=== PATIENT | female | born 1955 | race Caucasian/White ===

== ENCOUNTER 2022-05-14 08:03 | Day surgery (SDC) | payer OTHER ==
--- NOTE | 2022-05-12 11:31 | EKG ---
Test Date: 2022-05-12 Test Time: 11:01:56 Front End Manager: LUIS MEASUREMENT RESULTS: Intervals: Rate: 66 CT: 148 QRSD: 76 QT: 400 QTc: 419 [place]: P: 32 CT: 148 QRS: 5 T: 37 INTERPRETIVE STATEMENTS: Normal sinus rhythm Normal ECG No previous ECG available for comparison Electronically Signed On 05-12-22 11:31:08 CDT by Beck Camarena
[2022-05-12 11:43] LABS: Absolute Lymphocytes (CBC) 1.2 K/uL (0.7-4.9); Hematocrit 33.5 % (36.0-45.0); Lymphocytes % 15.4 % (15.3-44.8); MCV 94.3 fL (80-100); RBC Red Blood Cell Count 3.55 M/uL (3.86-4.86)
[2022-05-12 11:53] LABS: Protime INR 1.01
[2022-05-12 11:58] LABS: Potassium 4.6 mmol/L (3.5-5.1)
[2022-05-12 12:04] LABS: SARS-CoV-2 Antigen Rapid Res Negative (Negative)
--- NOTE | 2022-05-12 12:22 | RAD REPORT ---
EXAM DESCRIPTION: RAD - Chest Pa And Lat (2 Views) - 05/12/2022 11:55 am CLINICAL HISTORY: pre op for surgery Chest pain. COMPARISON: No comparisons FINDINGS: The lungs are clear. The heart is mildly prominent. No displaced fractures. Mild thoracic spondylosis.
[2022-05-12 12:30] LABS: Blood Morphology Comment NOT SEEN (NOT SEEN); Platelet Estimate ADEQ
[2022-05-14] MEDS ORDERED: CEFAZOLIN SODIUM 1 GM/VIAL ONE (08:32)
[2022-05-14] MEDS ORDERED: NA CHLORIDE 0.9% 1,000 ML ONE (08:32)
[2022-05-14] MEDS ORDERED: ACETAMINOPHEN 500 MG TAB PO ONE (08:45)
[2022-05-14] MEDS ORDERED: CELECOXIB 100 MG CAPSULE PO ONE (08:45)
[2022-05-14] MEDS ORDERED: CELECOXIB 100 MG CAPSULE ONE (08:54)
[2022-05-14] MEDS ORDERED: ACETAMINOPHEN 500 MG TAB ONE (08:54)
[2022-05-14] MEDS ORDERED: BUPIVACAINE 0.25% PF 10 ML VIAL ONE (09:01)
[2022-05-14] MEDS ORDERED: FENTANYL CITR 100 MCG/2 ML ONE (09:34)
[2022-05-14] MEDS ORDERED: propofoL 200 MG/20 ML VIAL IV ONE ×2 (09:34)
[2022-05-14] MEDS ORDERED: ONDANSETRON 4 MG/2 ML VIAL ONE (09:34)
[2022-05-14] MEDS ORDERED: MIDAZOLAM HCL 2 MG/2 ML INJ ONE (09:34)
[2022-05-14] MEDS ORDERED: LIDOCAINE 2% MPF 5 ML VIAL ONE (09:34)
[2022-05-14] MEDS ORDERED: KETOROLAC 30 MG/ML INJ ONE (09:34)
[2022-05-14] MEDS ORDERED: LIDOCAINE 1% MPF 30 ML VIAL ONE (09:34)
[2022-05-14] MEDS ORDERED: NS 0.9% VIAL 30 ML ONE (09:34)
--- NOTE | 2022-05-14 10:43 | P.BOP ---
Preoperative diagnosis: right carpal tunnel syndrome Postoperative diagnosis: same Primary procedure: right open carpal tunnel release Stationary Steam Engineer: NONE,NONE Estimated blood loss: 3 cc Specimen: none Findings: see dictation Anesthesia: General Complications: None Implants: none Fluids & blood products: per anesthesia record; TT: 30 mins @ 300 mmHg Transferred to: Recovery Room Condition: Good
[2022-05-14 12:47] VITALS: BP 133/77; TEMP 97.1; O2SAT 100
--- NOTE | 2022-05-18 11:52 | P.OP ---
Preoperative diagnosis: right recurrent carpal tunnel syndrome Postoperative diagnosis: same Primary procedure: right open carpal tunnel release Anesthesia: Angus block Estimated blood loss: 3 cc Specimen: none Findings: see dictation Operative Technique: Indication For Procedure: Cyndi is a 67-year-old female who presented to my clinic with signs, symptoms, and EMG findings consistent with carpal tunnel syndrome on her right upper extremity. The patient failed conservative treatment measures including night splint and had significant difficulties with activities of daily living. Patient had already had multiple carpal tunnel release surgeries in the past and had continued symptoms. I discussed with the patient the possibility of continued symptoms given her severe disease and she expressed understanding but would like to continue with operative treatment. I discussed with the patient at length risks and benefits associated with operative and nonoperative treatment. Janessae expressed understanding and elected to proceed with operative treatment. Description Of Procedure: After informed consent was obtained, the patient was identified in the preoperative holding area. The right upper extremity was marked. The patient was then brought back to the operating room, transferred to the operating room table in the supine fashion and placed under Angus block anesthesia of her right upper extremity by Anesthesia Team. The right upper extremity was then prepped and draped in usual sterile fashion. A time-out was initiated. The correct patient and procedure were confirmed and identified. The patient did receive his preoperative prophylactic antibiotics. Approximately, a 3 cm longitudinal incision was made just ulnar to the thenar crease and distal to the wrist crease. Dissection was then taken down to the palmar fascia, which was identified. A Rogers elevator was placed just deep to the palmar fascia and scar tissue and transverse carpal ligament to protect the median nerve at all times. A 15-blade was then used to release the palmar fascia and transverse carpal ligament under direct visualization. A Rogers elevator was used to protect the median nerve at all times. After this was completed, any remaining fascial bands were released using blunt-tipped Metzenbaums. They were aimed superficially again to protect the median nerve at all times. After this was completed, the wound was irrigated thoroughly with normal saline and skin was approximated using a 5-0 Prolene. Sterile dressings were applied. Tourniquet was let down. The patient was awakened and transferred to same-day surgery in stable condition. Postoperative Plan: The patient may begin work on range of motion exercises and she will follow up in 1 week for suture removal. Complications: None Implants: none Fluids & blood products: per anesthesia record Transferred to: Recovery Room Condition: Good
== END 2022-05-14 11:20 | disposition home or self-care (01) ==
LOC: OR 08:03
PROVIDERS: ATTEND Orthopaedic Surgery Sports Medicine
PROC: 01N50ZZ Release Median Nerve, Open Approach (ICD-10-PCS; principal; 2022-05-14 09:00)
DX: G56.01 Carpal tunnel syndrome, right upper limb (principal); M25.541 Pain in joints of right hand; F41.9 Anxiety disorder, unspecified; J45.909 Unspecified asthma, uncomplicated; E11.9 Type 2 diabetes mellitus without complications; I10 Essential (primary) hypertension; E03.9 Hypothyroidism, unspecified; Z20.822 Contact with and (suspected) exposure to COVID-19
CPT/HCPCS: 93005; 85025; 80048; 36415; 85610; 82947; 85730; 71046; 87811; 64721; J2704 ×2; J2250; J3010; J7030; J2405; J0690